=== PATIENT | female | born 1950 | race Hispanic/Latino ===

== ENCOUNTER → 2024-09-06 | Day surgery (SDC) | payer MEDICARE ==
[2024-09-03 13:08] LABS: BASOPHILS % 0.6 % (0.0-1.0); EOSINOPHILS % 0.6 % (0.0-6.0); LYMPHOCYTES % 18.0 % (18.0-39.1); MONOCYTES % 7.0 % (4.4-11.3); NEUTROPHILS % 73.5 % (38.7-80.0); RED CELL DISTRIBUTION WIDTH 13.4 % (11.7-14.4)
[~2024-09-06] MED LIST: ACETAMINOPHEN 1000 MG/100 ML 100 ML IV ONE; ACETAMINOPHEN 1000 MG/100 ML IV PRN; ASPIRIN 325 MG TAB PO SCH; ASPIRIN81 MG PO; B-121000 MC2; CALCIUM ACETAT667 MG PO; CELECOXIB 100 MG CAP PO SCH; DEXAMETHASONE SOD PHOS 10 MG/1 ML VIAL ONE; DIPHENHYDRAMINE HCL INJ 50 MG/ML VIAL IV PRN; DOCUSATE SODIUM 100 MG CAP PO PRN; FAMOTIDINE 20 MG/2 ML VIAL IV ONE; FENTANYL CITRATE/PF 100MCG/2 ML INJ ONE; HYDROCODONE/APAP 5MG-325MG TAB PO PRN; HYDROCODONE/APAP 7.5MG-325MG 1 EA TAB PO PRN; LEVOTHYROXINE88 MCG PO; LIDOCAINE HCL 2% LOCAL INJ 5 ML SDV VIAL INJ ONE; LISINOPRIL10 MG PO; METHOCARBAMOL 100MG/1ML 10ML VIAL ONE; ONDANSETRON HCL INJ 2MG/ML 2ML 2 MG/ML VIAL IV PRN; ONDANSETRON HCL INJ 2MG/ML 2ML 2 MG/ML VIAL ONE; PHENYLEPHRINE HCL 1% 10 MG/ML VIAL ONE; PROPOFOL IV EMULSION 10 MG/ML 20 ML VIAL ONE; ROCURONIUM BROMIDE 1 ML IV ONE; ROPIVACAINE/EPI/CLONIDINE/KET 50 ML SYRINGE INJ ONE; SEVOFLURANE INHAL SOLN 250 ML PEN BTL ONE; SODIUM CHLORIDE 0.9% 1000ML 1,000 ML IV SCH; SUGAMMADEX SODIUM 200 MG/2 ML VIAL IV ONE
[2024-09-06] MEDS: CELECOXIB 200 MG CAP ONE (09:28)
[2024-09-06] MEDS: LACTATED RINGER'S 1,000 ML ONE (09:28)
[2024-09-06] MEDS: CEFAZOLIN SODIUM 2 GM ONE (09:29)
[2024-09-06] MEDS: GABAPENTIN 300 MG CAP ONE (09:29)
[2024-09-06 12:28] VITALS: TEMP 98
[2024-09-06] MEDS: FENTANYL CITRATE/PF 100MCG/2 ML INJ ONE (12:55)
[2024-09-06 14:30] VITALS: BP 105/68; PULSE 68; RESP 18; O2SAT 98
== END | disposition home health service (06) ==
LOC: OR 09:14
PROVIDERS: ATTEND Specialist
DX: M16.12 Unilateral primary osteoarthritis, left hip (principal); M17.12 Unilateral primary osteoarthritis, left knee; I10 Essential (primary) hypertension; E03.9 Hypothyroidism, unspecified; F17.210 Nicotine dependence, cigarettes, uncomplicated; Z01.810 Encounter for preprocedural cardiovascular examination; Z01.812 Encounter for preprocedural laboratory examination; Z01.818 Encounter for other preprocedural examination; Z79.82 Long term (current) use of aspirin; Z79.899 Other long term (current) drug therapy
CPT/HCPCS: 27130; 36415; 71046; 72170; 85025; 86850; 86900; 93005; 97116; 97161; C1713 ×2; C1776 ×2; J0131; J1100; J1308; J2003; J2371; J2405; J2704; J2800; J3010; J7121